=== PATIENT | female | born 1995 | race Two or more races ===

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

== ENCOUNTER 2017-05-30 18:01 | Emergency (ER) | payer OTHER ==
--- NOTE | 2017-05-30 18:22 | PDOC ---
Rapid Medical Evaluation Time Seen by Provider: 05/30/17 18:19 Medical Evaluation: Allergies Allergy/AdvReac Type Severity Reaction Status Date / Time No Known Allergies Allergy Verified 06/14/16 16:13 05/30/17 18:19 I have performed a brief in-person evaluation of this patient. The patient presents with a chief complaint of: RLQ pain x 3 days, "couldn't pee this morning and before i came here", LMP "2 weeks ago", pain to R side when urinating, denies hematuria, 06/10/16 Pertinent physical exam findings: no CVA tenderness b/l I have ordered the following: UA, UC, upreg The patient will proceed to the ED for further evaluation. Discharge Disposition - Diagnosis Urinary problem in female - Referrals - Patient Instructions - Post Discharge Activity
[2017-05-30 18:24] VITALS: BP 120/70; PULSE 77; TEMP 98.4; BMI 21.7
[2017-05-30 20:45] LABS: URINE APPEARANCE CLEAR; URINE BILIRUBIN NEGATIVE (<2.0 mg/dL); URINE BLOOD NEGATIVE (NEGATIVE); URINE COLOR YELLOW; URINE GLUCOSE (UA) NEGATIVE (NEGATIVE); URINE KETONE NEGATIVE (NEGATIVE); URINE LEUK ESTERASE NEGATIVE (NEGATIVE); URINE NITRITE NEGATIVE (NEGATIVE); URINE PROTEIN NEGATIVE (NEGATIVE); URINE UROBILINOGEN NEGATIVE mg/dL (0.2-1.0)
[2017-05-30 20:48] LABS: HCG,QUALITATIVE URINE NEGATIVE
[2017-05-30 20:51] LABS: BASO % 0.5 % (0-2.0); EOS % 1.2 % (0-4.5); HEMATOCRIT 34.9 % (32.4-45.2); HEMOGLOBIN 11.4 GM/dL (10.7-15.3); MCH 28.8 pg (25.7-33.7); MCHC 32.8 g/dl (32.0-36.0); MEAN CELL VOLUME 87.7 fl (80-96); MEAN PLT VOLUME 9.8 fl (7.5-11.1); MONO % 10.7 % (3.8-10.2); NEUT % 67.6 % (42.8-82.8); PLATELET COUNT 250 K/MM3 (134-434); RBC 3.98 M/mm3 (3.60-5.2); RDW 14.6 % (11.6-15.6); WHITE BLOOD COUNT 11.8 K/mm3 (4.0-10.0)
[2017-05-30 21:19] LABS: ALBUMIN 3.7 g/dl (3.4-5.0); ANION GAP 2 (8-16); BLOOD UREA NITROGEN 14 mg/dL (7-18); CALCIUM 9.1 mg/dL (8.5-10.1); CHLORIDE 108 mmol/L (98-107); CO2 30 mmol/L (21-32); CREATININE 0.6 mg/dL (0.55-1.02); GLUCOSE,RANDOM 88 mg/dL (74-106); POTASSIUM 4.4 mmol/L (3.5-5.1); SGOT/AST 10 U/L (15-37); SGPT/ALT 12 U/L (12-78); SODIUM 140 mmol/L (136-145)
[2017-05-30 21:21] LABS: ALK PHOS 81 U/L (45-117); BILIRUBIN,TOTAL 0.3 mg/dL (0.2-1.0); TOT PROT 7.2 g/dl (6.4-8.2)
--- NOTE | 2017-05-30 21:35 | PDOC ---
History of Present Illness - General Chief Complaint: Pain Stated Complaint: RIGHT SIDE PAIN Time Seen by Provider: 05/30/17 18:19 History Source: Patient Exam Limitations: No Limitations - History of Present Illness Travel History: No Initial Comments: 05/30/17 21:32 Best Contact: Pmhx: N/A Pshx: C section 06/10/2016 Allergies: NKDA 22-year-old female presents to the emergency department complaining of right lower quadrant abdominal pain. Pain is described as 4/10 dull nonradiating intermittent discomfort for approximately 9 months which has worsened over the past 2 weeks. There are no alleviating factors but the pain is sometimes exacerbated upon urination but denies burning upon urination. Patient denies fever, chills, nausea/vomiting, chest pain, shortness of breath, flank pains, urinary urgency/frequency/hesitancy, hematuria. Patient states she's had similar symptoms in the past and has informed her physician who told her that the pain is due to her previous . Past History - Past Medical History Allergies/Adverse Reactions: Allergies Allergy/AdvReac Type Severity Reaction Status Date / Time No Known Allergies Allergy Verified 05/30/17 18:19 Home Medications: Ambulatory Orders Vit 93/Iron Fum/Folic [ Formula Tablet] 1 each PO DAILY Ferrous Sulfate [Feosol] 325 mg PO DAILY 06/14/16 Ibuprofen 800 mg PO TID #30 tablet 07/01/16 Anemia: Yes Asthma: No Cancer: No Cardiac Disorders: No COPD: No Diabetes: No HTN: No Seizures: No Thyroid Disease: No - Suicide/Smoking/Psychosocial Hx Smoking History: Never smoked Have you smoked in the past 12 months: No Information on smoking cessation initiated: No Hx Alcohol Use: No Drug/Substance Use Hx: No Substance Use Type: None Hx Substance Use Treatment: No Review of Systems - Review of Systems Able to Perform ROS?: Yes Comments:: 05/30/17 21:34 CONSTITUTIONAL: Absent: fever, chills, diaphoresis, generalized weakness, malaise, loss of appetite HEENT: Absent: rhinorrhea, nasal congestion, throat pain, throat swelling, difficulty swallowing, mouth swelling, ear pain, eye pain, visual Changes CARDIOVASCULAR: Absent: chest pain, loss of consciousness, palpitations, irregular heart rate, peripheral edema RESPIRATORY: Absent: cough, shortness of breath, dyspnea with exertion, orthopnea, wheezing, stridor, hemoptysis GASTROINTESTINAL: +RLQ pain Absent: abdominal distension, nausea, vomiting, diarrhea, constipation, melena , hematochezia GENITOURINARY: Absent: dysuria, frequency, urgency, hesitancy, hematuria, flank pain, genital pain MUSCULOSKELETAL: Absent: myalgia, arthralgia, joint swelling SKIN: Absent: rash, itching, pallor HEMATOLOGIC/IMMUNOLOGIC: Absent: easy bleeding, easy bruising, lymphadenopathy, frequent infections ENDOCRINE: Absent: unexplained weight gain, unexplained weight loss, heat intolerance, cold intolerance NEUROLOGIC: Absent: headache, focal weakness or paresthesias, dizziness, unsteady gait, seizure, mental status changes, bladder or bowel incontinence PSYCHIATRIC: Absent: anxiety, depression, suicidal or homicidal ideation, hallucinations. Is the patient limited Irish proficient: No *Physical Exam - Vital Signs Last Vital Signs Temp Pulse Resp BP Pulse Ox 98.4 F 77 18 120/70 100 05/30/17 18:20 05/30/17 18:20 05/30/17 18:20 05/30/17 18:20 05/30/17 18:20 - Physical Exam Comments: 05/30/17 21:34 GENERAL: Well developed, well nourished. Awake and alert. No acute distress. HEENT: Normocephalic, atraumatic. PERRLA, EOMI. No conjunctival pallor. Sclera are non- icteric. Moist mucous membranes. Oropharynx is clear. NECK: Supple. Full ROM. No JVD. Carotid pulses 2+ and symmetric, without bruits. No thyromegaly. No lymphadenopathy. CARDIOVASCULAR: Regular rate and rhythm. No murmurs, rubs, or gallops. Distal pulses are 2+ and symmetric. PULMONARY: No evidence of respiratory distress. Lungs clear to auscultation bilaterally. No wheezing, rales or rhonchi. ABDOMINAL: +RLQ pain on pain Soft.Non-distended. No rebound or guarding. No organomegaly. Normoactive bowel sounds. MUSCULOSKELETAL Normal range of motion at all joints. No bony deformities or tenderness. No CVA tenderness. EXTREMITIES: No cyanosis. No clubbing. No edema. No calf tenderness. SKIN: Warm and dry. Normal capillary refill. No rashes. No jaundice. NEUROLOGICAL: Alert, awake, appropriate. Cranial nerves 2-12 intact. No deficits to light touch and temperature in face, upper extremities and lower extremities. No motor deficits in the in face, upper extremities and lower extremities. Normoreflexic in the upper and lower extremities. Normal speech. Toes are down- going bilaterally. Gait is normal without ataxia. PSYCHIATRIC: Cooperative. Good eye contact. Appropriate mood and affect. ED Treatment Course - LABORATORY CBC & Chemistry Diagram: 05/30/17 20:40 05/30/17 20:40 - ADDITIONAL ORDERS Additional order review: Laboratory Results 05/30/17 05/30/17 20:40 19:07 Sodium 140 Potassium 4.4 Chloride 108 H Carbon Dioxide 30 Anion Gap 2 L BUN 14 Creatinine 0.6 Creat Clearance w eGFR > 60 Random Glucose 88 Calcium 9.1 Total Bilirubin 0.3 D AST 10 L ALT 12 Alkaline Phosphatase 81 Total Protein 7.2 Albumin 3.7 Urine Color Yellow Urine Appearance Clear Urine pH 6.0 Ur Specific [place] 1.027 Urine Protein Negative Urine Glucose (UA) Negative Urine Ketones Negative Urine Blood Negative Urine Nitrite Negative Urine Bilirubin Negative Urine Urobilinogen Negative Ur Leukocyte Esterase Negative Urine HCG, Qual Negative 05/30/17 20:40 RBC 3.98 MCV 87.7 MCHC 32.8 RDW 14.6 D MPV 9.8 D Neutrophils % 67.6 Lymphocytes % 20.0 Monocytes % 10.7 H Eosinophils % 1.2 Basophils % 0.5 - RADIOLOGY Radiology Studies Ordered: Category Date Time Status ABDOMEN & PELVIS CT WITH CONTR [CT] Stat CT Scan 05/30/17 20:05 Ordered Radiograph Interpretation: 05/30/17 21:35 CAT scan abdomen/pelvis with by mouth and IV contrast: Impression: Nonspecific pelvic fluid possibly physiologic in a young woman. With some mildly distended segments of small bowel, findings may be related to nonspecific enteritis and ileus Progress Note - Progress Note Progress Note: 2207hrs: Patient pain-free 0002hrs: Patient pain-free on reexamination *DC/Admit/Observation/Transfer Diagnosis at time of Disposition: Abdominal pain Qualifiers: Abdominal location: right lower quadrant Qualified Code(s): R10.31 - Right lower quadrant pain - Discharge Dispostion Disposition: HOME Condition at time of disposition: Stable Admit: No - Referrals Referrals: Wellington Balderas [Primary Care Provider] - Anabel Saucedo MD [Staff Physician] - - Patient Instructions Printed Discharge Instructions: DI for Abdominal Pain-Adult Additional Instructions: Clear liquids with slow transition to regular diet Avoid or fatty food Increase fluid intake Follow-up with the die sinker: [phone] Return back to the emergency department for severe/persistent or worsening symptoms. CAT scan abdomen/pelvis with by mouth and IV contrast: Impression: Nonspecific pelvic fluid possibly physiologic in a young woman. With some mildly distended segments of small bowel, findings may be related to nonspecific enteritis and ileus - Post Discharge Activity Forms/Work/School Notes: Back to Work
== END 2017-05-31 01:08 | disposition home or self-care (01) ==
LOC: JER 18:01
DX: R10.31 Right lower quadrant pain (principal)
CPT/HCPCS: 36415; 74177-TC; 80053; 81003; 84703; 85025; 87086; 99282-25

== ENCOUNTER 2022-05-05 09:53 | Emergency (ER) | payer OTHER ==
[2022-05-05 10:40] VITALS: BMI 25.3
[2022-05-05] MEDS ORDERED: ACETAMINOPHEN 1000 MG/100 ML BAG IVPB ONE (10:52)
[2022-05-05] MEDS ORDERED: SODIUM CHLORIDE 0.9% 500 ML INFUS.BAG IV ONE (10:52)
[2022-05-05] MEDS ORDERED: ONDANSETRON 4 MG/2 ML VIAL IVPB ONE (10:52)
[2022-05-05] MEDS ORDERED: ONDANSETRON 4 MG/2 ML VIAL ONE (10:55)
[2022-05-05] MEDS ORDERED: ACETAMINOPHEN INJECTION 100 ML IVPB ONE (10:55)
[2022-05-05 11:23] LABS: HEMATOCRIT 36.6 % (32.4-45.2); HEMOGLOBIN 11.5 GM/dL (10.7-15.3); MCH 24.8 pg (25.7-33.7); MCHC 31.5 g/dl (32.0-36.0); MEAN CELL VOLUME 78.7 fl (80-96); MEAN PLT VOLUME 8.5 fl (7.5-11.1); PLATELET COUNT 246 10^3/uL (134-434); RBC 4.65 M/mm3 (3.60-5.2); RDW 19.8 % (11.6-15.6); WHITE BLOOD COUNT 15.4 K/mm3 (4.0-10.0)
[2022-05-05 11:43] LABS: URINE APPEARANCE CLEAR; URINE BILIRUBIN NEGATIVE (NEGATIVE); URINE COLOR YELLOW; URINE GLUCOSE (UA) NEGATIVE (NEGATIVE); URINE KETONE NEGATIVE (NEGATIVE); URINE LEUK ESTERASE NEGATIVE (NEGATIVE); URINE NITRITE NEGATIVE (NEGATIVE); URINE PROTEIN NEGATIVE (NEGATIVE); URINE UROBILINOGEN 0.2 mg/dL (0.2-1.0)
[2022-05-05 11:55] LABS: CREATININE 0.6 mg/dL (0.55-1.3)
[2022-05-05 11:56] LABS: BILIRUBIN,TOTAL 0.4 mg/dL (0.2-1)
[2022-05-05 11:57] LABS: TOT PROT 7.6 g/dl (6.4-8.2)
[2022-05-05 12:05] LABS: ANISOCYTOSIS 1+
[2022-05-05 16:02] VITALS: BP 125/72; PULSE 72; RESP 20; TEMP 98.8
== END 2022-05-05 16:03 | disposition home or self-care (01) ==
LOC: JER 09:53
PROC: 3E033NZ Introduction of Analgesics, Hypnotics, Sedatives into Peripheral Vein, Percutaneous Approach (ICD-10-PCS; principal; 2022-05-05)
PROC: 3E033GC Introduction of Other Therapeutic Substance into Peripheral Vein, Percutaneous Approach (ICD-10-PCS; 2022-05-05)
DX: R10.11 Right upper quadrant pain (principal); K52.9 Noninfective gastroenteritis and colitis, unspecified; R11.2 Nausea with vomiting, unspecified; R19.7 Diarrhea, unspecified
CPT/HCPCS: 36415; 71046-TC-FY; 76705-TC; 80053; 81003; 83605; 83690; 84484; 84703; 85025; 93005; 93010; 99285-25